=== PATIENT | male | born 1960 | race African-American/Black ===

== ENCOUNTER 2022-01-12 14:45 | Emergency (ER) | payer MEDICARE, BC ==
[~2022-01-12] VITALS: Ht 180.3 cm; Wt 93.0 kg
[2022-01-12] MEDS ORDERED: TETANUS, DIPHTHERIA, PERTUSSIS VAC/PF 0.5ML (>10YR OLD) IM ONE (15:30)
[2022-01-12] MEDS ORDERED: LIDOCAINE HCL/PF 1% 10 MG/ML 5ML VIAL INFIL ONE (15:30)
[2022-01-12] MEDS ORDERED: ACETAMINOPHEN 325MG TABLET PO ONE (15:30)
[2022-01-12] MEDS ORDERED: BACITRACIN ZINC OINT UDPKT TOP ONE (15:30)
[2022-01-12] MEDS ORDERED: BO1 TP (15:59)
[2022-01-12] MEDS ORDERED: LIDOCAINE HCL 1% 10 MG/ML 10ML VIAL IJ NR (16:06)
[2022-01-12 16:17] VITALS: BP 142/72
== END 2022-01-12 16:23 | disposition home or self-care (01) ==
LOC: ER 14:45
DX: S01.01XA Laceration without foreign body of scalp, initial encounter (principal); W18.39XA Other fall on same level, initial encounter; Y93.89 Activity, other specified; Y92.89 Other specified places as the place of occurrence of the external cause; Y99.8 Other external cause status
CPT/HCPCS: 12001; 90471; 90715; 99283; J3490

== ENCOUNTER 2022-03-13 12:52 | Emergency (ER) | payer MEDICARE, BC ==
[~2022-03-13] VITALS: Ht 177.8 cm; Wt 93.0 kg
[~2022-03-13 12:52] MED LIST: BO1 TP
[2022-03-13 13:02] VITALS: BP 141/87
== END 2022-03-13 14:15 | disposition home or self-care (01) ==
LOC: ER 12:52
DX: U07.1 COVID-19 (principal); M19.90 Unspecified osteoarthritis, unspecified site
CPT/HCPCS: 87426; 99283; C9803

== ENCOUNTER 2024-06-27 12:05 | Emergency (ER) | payer MEDICARE, BC ==
[~2024-06-27] VITALS: Ht 177.8 cm; Wt 81.0 kg
[2024-06-27 12:09] VITALS: PULSE 90; O2SAT 100
[2024-06-27 12:13] VITALS: BP 136/85; RESP 18; TEMP 97.9; O2SAT 98
[2024-06-27] MEDS ORDERED: IBUP-2028 MT (13:06)
== END 2024-06-27 13:21 | disposition home or self-care (01) ==
LOC: ER 12:05
DX: M70.32 Other bursitis of elbow, left elbow (principal)
CPT/HCPCS: 99282

== ENCOUNTER 2024-11-11 11:11 | Emergency (ER) | payer MEDICARE, BC ==
[~2024-11-11] VITALS: Ht 180.3 cm; Wt 94.0 kg
[~2024-11-11 11:11] MED LIST changes: +IBUP-2028 MT
[2024-11-11 11:18] VITALS: O2SAT 100
[2024-11-11 11:28] VITALS: BP 126/84; PULSE 58; RESP 16; TEMP 36.6; O2SAT 99
== END 2024-11-11 12:16 | disposition home or self-care (01) ==
LOC: ER 11:11
DX: N42.81 Prostatodynia syndrome (principal); Z00.00 Encounter for general adult medical examination without abnormal findings
CPT/HCPCS: 99281

== ENCOUNTER 2025-08-15 12:07 | Emergency (ER) | payer MEDICARE, BC ==
[~2025-08-15] VITALS: Ht 177.8 cm; Wt 98.0 kg
[2025-08-15 12:14] VITALS: O2SAT 97
[2025-08-15 12:18] VITALS: BP 132/84; PULSE 82; RESP 18; TEMP 36.9; O2SAT 100
[2025-08-15 13:17] LABS: BASOPHILS % 0.7 % (0.0-2.0); EOSINOPHILS % 3.9 % (0.0-5.0); HEMATOCRIT. 47.6 % (42.0-52.0); HEMOGLOBIN. 15.5 g/dL (14.0-18.0); LYMPHOCYTES % 32.1 % (20.0-50.0); MEAN PLATELET VOLUME 8.5 fl (7.4-10.4); MONOCYTES % 7.8 % (2.0-8.0); NEUTROPHILS % 55.5 % (40.0-76.0); PLATELET 196 x1000/uL (130-400); RED BLOOD CELL COUNT 5.27 mill/uL (4.7-6.1); RED CELL DISTRIBUTION WIDTH 14.5 % (11.6-14.6)
[2025-08-15 13:27] LABS: CREATININE 0.9 mg/dL (0.6-1.3); UREA NITROGEN BLOOD 8 mg/dL (9-23)
[2025-08-15 14:09] LABS: CLARITY URINE CLEAR (CLEAR); COLOR URINE YELLOW (YELLOW); GLUCOSE URINE NEGATIVE (NEGATIVE); KETONES URINE NEGATIVE (NEGATIVE); LEUKOCYTE ESTERASE URINE NEGATIVE (NEGATIVE); NITRITE URINE NEGATIVE (NEGATIVE); OCCULT BLOOD URINE NEGATIVE (NEGATIVE); PH URINE 7.0 (4.5-8.0); PROTEIN URINE NEGATIVE (NEGATIVE); SPECIFIC GRAVITY URINE 1.021 (1.005-1.030); UROBILINOGEN URINE 0.2 E.U./dL (0.2-1.0)
[2025-08-15] MEDS ORDERED: TAMS-54 MT (14:25)
== END 2025-08-15 14:37 | disposition home or self-care (01) ==
LOC: ER 12:07
DX: R32 Unspecified urinary incontinence (principal); Z79.899 Other long term (current) drug therapy
CPT/HCPCS: 36415; 80048; 81003; 85025; 99283

== ENCOUNTER 2025-08-30 14:18 | Emergency (ER) | payer MEDICARE, BC ==
[~2025-08-30] VITALS: Ht 180.3 cm; Wt 96.0 kg
[~2025-08-30 14:18] MED LIST changes: +TAMS-54 MT
[2025-08-30 14:22] VITALS: O2SAT 100
[2025-08-30 14:36] VITALS: BP 103/76; PULSE 65; RESP 12; TEMP 36.9; O2SAT 96
[2025-08-31] MEDS ORDERED: BO1 TP (11:21)
[2025-08-31] MEDS ORDERED: CEPH500C2 MT (11:21)
== END 2025-08-30 15:52 | disposition left against medical advice (07) ==
LOC: ER 14:18
DX: M54.50 Low back pain, unspecified (principal)
CPT/HCPCS: 99281

== ENCOUNTER 2025-08-31 10:00 | Emergency (ER) | payer MEDICARE, BC ==
[~2025-08-31] VITALS: Ht 177.8 cm; Wt 82.0 kg
[2025-08-31 10:02] VITALS: O2SAT 98
[2025-08-31 10:06] VITALS: BP 117/74; PULSE 66; RESP 16; TEMP 36.9; O2SAT 97
[2025-08-31] MEDS: LIDOCAINE HCL 1% 20ML VIAL INFIL ONE (11:12)
[2025-08-31] MEDS ORDERED: CEPH500C2 MT (11:21)
[2025-08-31] MEDS ORDERED: BO1 TP (11:21)
== END 2025-08-31 11:35 | disposition home or self-care (01) ==
LOC: ER 10:00
DX: L02.91 Cutaneous abscess, unspecified (principal); M19.90 Unspecified osteoarthritis, unspecified site; Z79.899 Other long term (current) drug therapy
CPT/HCPCS: 99283; J2003